=== PATIENT | female | born 1960 | race Caucasian/White ===

== ENCOUNTER 2017-08-18 09:40 | Emergency (ER) | payer BC ==
[2017-08-18 09:48] VITALS: BP 138/92
--- NOTE | 2017-08-18 10:24 | UC ---
Complaint Female HPI - HPI Summary HPI Summary: 3-4 DAYS OF DYSURIA AND URINARY FREQUENCY. NO FEVER, NAUSEA OR BACK PAIN. HAS BEEN DRINKING A LOT OF WATER AND CRANBERRY. NOT HELPING. - History Of Current Complaint Chief Complaint: [facility] Stated Complaint: URINARY ISSUE Time Seen by Provider: 08/18/17 09:56 Hx Obtained From: Patient Onset/Duration: Gradual Onset, Lasting Days, Still Present Severity Initially: Moderate Severity Currently: Mild Pain Intensity: 2 Pain Scale Used: 0-10 Numeric Character: Burning Aggravating Factor(s): Urination Alleviating Factor(s): Nothing Associated Signs And Symptoms: Negative: Fever, Back Pain, Vaginal Bleeding/ Discharge, Vaginal Discharge, Nausea, Vomiting(# Of Episodes =), Genital Swelling, Genital Blisters - Allergies/Home Medications Allergies/Adverse Reactions: Allergies Allergy/AdvReac Type Severity Reaction Status Date / Time Amoxicillin Allergy Rash Verified 06/06/15 15:53 Home Medications: Home Medications Cholecalciferol [Vitamin D] 1,000 unit PO 08/18/17 [History] Multiple Vitamins W/ Minerals [Multivitamin] 1 liq PO 08/18/17 [History] PMH/Surg Hx/FS Hx/Imm Hx - Additional Past Medical History Additional PMH: CHRONIC BACK PAIN - Surgical History Surgical History: Yes Surgery Procedure, Year, and Place: knees (arthroscopy) , full rt knee replacement - Family History Known Family History: Positive: Hypertension - Social History Alcohol Use: Occasionally Substance Use Type: None Smoking Status (MU): Never Smoked Tobacco Review of Systems Constitutional: Negative Respiratory: Negative Cardiovascular: Negative Gastrointestinal: Negative Genitourinary: Dysuria, Frequency All Other Systems Reviewed And Are Negative: Yes Physical Exam Triage Information Reviewed: Yes Appearance: Well-Appearing, No Pain Distress, Well-Nourished Vital Signs: Initial Vital Signs Temp 97.4 F 08/18/17 09:44 Pulse 98 08/18/17 09:44 Resp 18 08/18/17 09:44 BP 138/92 08/18/17 09:44 Pulse Ox 98 08/18/17 09:44 Vital Signs Reviewed: Yes Eyes: Positive: Conjunctiva Clear ENT: Positive: Hearing grossly normal Neck: Positive: Supple Respiratory: Positive: No respiratory distress, No accessory muscle use Cardiovascular: Positive: Pulses Normal Abdomen Description: Positive: Nontender, Soft. Negative: CVA Tenderness (R), CVA Tenderness (L), Distended, Guarding Musculoskeletal: Positive: No Edema Neurological: Positive: Alert Psychological: Positive: Age Appropriate Behavior Skin: Negative: rashes Diagnostics - Laboratory Diagnostic Studies Completed/Ordered: URINE DIP SP. GR. 1.005, 3+ LEUKS, 2+ BLOOD Complaint Female Dx - Differential Dx/Diagnosis Provider Diagnoses: UTI Discharge - Discharge Plan Condition: Stable Disposition: HOME Prescriptions: Sulfamethox/Trimethoprim DS* [Bactrim DS 800/160 TAB*] 1 tab PO BID #10 tab Patient Education Materials: Urinary Tract Infection in Women (ED) Additional Instructions: CALL THE NUMBER BELOW FOR ASSISTANCE IN ESTABLISHING WITH A PCP An additional resource available to assist in finding the appropriate physician for your health care needs is [facility] ([facility]). You may contact them by calling [phone].
== END 2017-08-18 10:25 | disposition home or self-care (01) ==
LOC: UCEAST 09:40
DX: N39.0 Urinary tract infection, site not specified (principal); Z88.1 Allergy status to other antibiotic agents; G89.29 Other chronic pain; M54.9 Dorsalgia, unspecified
CPT/HCPCS: 81003; 87077; 87086; 87186; 99212; G0463